=== PATIENT | male | born 1970 | race Caucasian/White ===

== ENCOUNTER 2024-06-28 11:25 | Emergency (ER) | payer MEDICAID, OTHER ==
[~2024-06-28] VITALS: Ht 177.8 cm; Wt 81.8 kg
[2024-06-28] MEDS ORDERED: CIPR-202 PO (11:56)
[2024-06-28] MEDS: CefTRIAXone 1000mg IM Kit (w/lidocaine diluent) IM ONE (12:58)
[2024-06-28] MEDS: TETanus/Pertussis (Acell)/Diphther VAC/PF (Tdap-Adult) 0.5ml syringe IMVAC ONE (12:59)
[2024-06-28 13:03] VITALS: BP 126/76; PULSE 80; RESP 18; TEMP 97.8; O2SAT 97
== END 2024-06-28 13:07 | disposition home or self-care (01) ==
LOC: ER 11:26
DX: S91.332A Puncture wound without foreign body, left foot, initial encounter (principal); L03.116 Cellulitis of left lower limb; Z72.89 Other problems related to lifestyle; W22.8XXA Striking against or struck by other objects, initial encounter; W45.0XXA Nail entering through skin, initial encounter; Y92.89 Other specified places as the place of occurrence of the external cause; Y99.8 Other external cause status
CPT/HCPCS: 90471; 90715; 96372; 99284; J0696